=== PATIENT | male | born 1965 | race African-American/Black ===

== ENCOUNTER 2024-07-18 10:39 | Emergency (ER) | payer OTHER ==
[2024-07-18 10:50] VITALS: RESP 18
--- NOTE | 2024-07-18 10:52 | ED ---
Extremity Problem HPI - General Chief complaint: Extremity Problem,Nontraumatic Stated complaint: R ankle pain Time Seen by Provider: 07/18/24 10:45 Source: patient, RN notes reviewed Mode of arrival: ambulatory Limitations: no limitations - History of Present Illness Initial comments: This is a 59-year-old male who presents to the emergency department for right ankle pain. States that it started a couple of days ago when he was at work. He is on his feet a lot at work and pushing around carts. However, he denies any injuries. While he has the pain and swelling he has not noticed any redness. Unable to localize the pain anywhere inparticular on the ankle or foot. He does have improvement with Tylenol and is still able to ambulate. MD Complaint: extremity pain, extremity swelling - Related Data Previous Rx's Medication Instructions Recorded Meloxicam [Mobic] 15 mg PO DAILY PRN #30 tab 07/18/24 Allergies Allergy/AdvReac Type Severity Reaction Status Date / Time No Known Allergies Allergy Verified 07/18/24 10:50 Review of Systems ROS Statement: Those systems with pertinent positive or pertinent negative responses have been documented in the HPI. ROS Other: All systems not noted in ROS Statement are negative. Past Medical History Past Medical History: No Reported History History of Any Multi-Drug Resistant Organisms: None Reported Past Surgical History: No Surgical Hx Reported Past Psychological History: No Psychological Hx Reported Smoking Status: Former smoker Past Alcohol Use History: None Reported Past Drug Use History: None Reported General Exam - General Exam Comments Initial Comments: Visual Physical Exam Vital signs reviewed General: Well-appearing, nontoxic, no acute distress. Head: Normocephalic, atraumatic Eyes: PERRLA, EOMI ENT: Airway patent Chest: Nonlabored breathing Skin: No visual rash, normal skin tone Neuro: Alert and oriented 3 Musculoskeletal: No gross abnormalities Limitations: no limitations General appearance: alert, in no apparent distress Head exam: Present: atraumatic, normocephalic, normal inspection Respiratory exam: Present: normal lung sounds bilaterally. Absent: respiratory distress, wheezes, rales, rhonchi, stridor Cardiovascular Exam: Present: regular rate, normal rhythm, normal heart sounds. Absent: systolic murmur, diastolic murmur, rubs, gallop, clicks Extremities exam: Present: other (Mild generalized swelling around the right ankle. No localized tenderness. No erythema or warmth. 2+ DP and PT pulses) Neurological exam: Present: alert, oriented X3, CN II-XII intact Psychiatric exam: Present: normal affect, normal mood Course Vital Signs 07/18/24 07/18/24 10:47 14:01 Temperature 98.3 F 98.2 F Pulse Rate 78 62 Respiratory 18 18 Rate Blood Pressure 170/71 132/68 O2 Sat by Pulse 98 99 Oximetry Medical Decision Making - Medical Decision Making This is a 59-year-old male who presents to the emergency department for right foot and ankle pain/swelling. Was pt. sent in by a medical professional or institution? @ -No Did you speak to anyone other than the patient for history? @ -No Did you review nursing and triage notes? @ -Yes, and I agree, it is accurate with regards to the patient's symptoms. Were old charts reviewed? @ -No Differential Diagnosis? @ -Differential Musculoskeletal Muscular strain, contusion, ligament sprain, fracture, arthritis, septic arthritis, bursitis, cellulitis, muscle spasm, nerve compression, DVT, arterial occlusion, herpes zoster, electrolyte abnormality, tumor.... This is not meant to be in all inclusive list EKG interpreted by me (3pts min.)? @ -Not obtained X-rays interpreted by me (1pt min.)? @ -X-ray of the right foot and ankle obtained. My interpretation identifies minor swelling around the ankle. CT interpreted by me (1pt min.)? @ -Not obtained U/S interpreted by me (1pt. min.)? @ -Not obtained What testing was considered but not performed? (CT, X-rays, U/S, labs)? Why? @ -None What meds were considered but not given? Why? @ -None Did you discuss the management of the patient with other professionals? @ -No Did you reconcile home meds? @ -No Was smoking cessation discussed for >3mins.? @ -No Was critical care preformed (if so, how long)? @ -No Were there social determinants of health that impacted care today? How? (Homelessness, low income, unemployed, alcoholism, drug addiction, transportation, low edu. Level, literacy, decrease access to med. care, care home, rehab)? @ -No Was there de-escalation of care discussed even if they declined? (Discuss DNR or withdrawal of care, Hospice)? @ -No What co-morbidities impacted this encounter? (DM, HTN, Smoking, COPD, CAD, Cancer, CVA, Hep., AIDS, mental health diagnosis, sleep apnea, morbid obesity)? @ -None Was patient admitted / discharged? @ -Discharged. X-ray of the right foot and ankle demonstrates a heterogeneous appearance of the lateral malleolus. There is a linear lucency in one projec tion and they advised the possibility of a fracture. However, given the lack of injury and patient having no localized tenderness over this area, this would not necessarily be likely. Findings reviewed with the patient. Meloxicam prescribed to see if this helps with the pain and swelling. Velcro stirrup splint provided as well for support. Advised he continue with Tylenol as well and follow-up with his PCP for reevaluation. Patient discharged home in stable condition. Case discussed with ED attending Dr. Pruett. Return precautions reviewed in depth, the patient is instructed to return to the emergency department with any new, worsening, or concerning symptoms. Patient verbalized understanding. Undiagnosed new problem with uncertain prognosis? @ -None Drug Therapy requiring intensive monitoring for toxicity (Heparin, Nitro, Insulin, Cardizem)? @ -None Were any procedures done? @ -None Diagnosis/symptom? @ -Right foot pain, right ankle pain Acute, or Chronic, or Acute on Chronic? @ -Acute Uncomplicated (without systemic symptoms) or Complicated (systemic symptoms)? @ -Uncomplicated Side effects of treatment? @ -None Exacerbation, Progression, or Severe Exacerbation] @ -Not applicable Poses a threat to life or bodily function? @ -No - Radiology Data Radiology results: report reviewed, image reviewed Disposition Clinical Impression: Right ankle pain Disposition: HOME SELF-CARE Instructions (If sedation given, give patient instructions): Arthralgia (ED) Additional Instructions: Return to the emergency department with any new, worsening, or concerning symptoms. Start taking the Mobic once daily to help with pain. You may take this with Tylenol for further relief. Use the Velcro splint as needed for support. Also elevate the leg when seated. Follow up with your primary care provider in 1-2 days. Prescriptions: Meloxicam [Mobic] 15 mg PO DAILY PRN #30 tab PRN Reason: Pain Is patient prescribed a controlled substance at d/c from ED?: No Referrals: [facility] [NON-STAFF] - 1-2 days [facility] [NON-STAFF] - 1-2 days None,Stated [Primary Care Provider] - 1-2 days Forms: Area PCPs Time of Disposition: 13:52
--- NOTE | 2024-07-18 11:58 | XR ---
EXAMINATION TYPE: XR foot complete RT DATE OF EXAM: 07/18/2024 11:25 AM COMPARISON: 07/18/2024 CLINICAL INDICATION: Male, 59 years old with history of Pain; [facility] TECHNIQUE: XR foot complete RT examined in the AP, oblique, and lateral projections. FINDINGS: No evidence of any acute osseous pathology. Calcaneal plantar spurring is present. Multifocal degener ation changes throughout the joints of the foot with osteophyte formation and joint space narrowing. Remote injury to the second metatarsal suggested. Hallux valgus. IMPRESSION: 1. No evidence of acute fracture. 2. Mild to moderate degeneration changes throughout the joints of the foot. 3. Hallux valgus. [facility], , 07/18/2024 11:55 AM
--- NOTE | 2024-07-18 12:18 | XR ---
EXAMINATION TYPE: XR ankle complete RT DATE OF EXAM: 07/18/2024 11:25 AM COMPARISON: None CLINICAL INDICATION: Male, 59 years old with history of Pain; TECHNIQUE: XR ankle complete RT; ankle is imaged in frontal, lateral and oblique projections. FINDINGS: There is no evidence of acute osseous pathology. No evidence of subluxation or dislocation. Kager's fat pad is intact. Mild soft tissue swelling around the ankle. No radiopaque foreign bodies are ident ified. Calcaneal plantar spurring is present. IMPRESSION: Heterogenous appearance to the lateral malleolus. Linear lucency is seen on one projection given soft tissue swelling consider further evaluation with CT to exclude fracture. [facility], , 07/18/2024 12:16 PM
[2024-07-18 14:02] VITALS: BP 132/68; PULSE 62; TEMP 98.2
== END 2024-07-18 14:03 | disposition home or self-care (01) ==
LOC: EC 10:39
DX: M25.571 Pain in right ankle and joints of right foot (principal); M79.671 Pain in right foot; Z87.891 Personal history of nicotine dependence
CPT/HCPCS: 99283